=== PATIENT | male | born 1965 | race Caucasian/White ===

== ENCOUNTER 2016-03-11 03:28 | Inpatient (IN) | payer BC ==
[~2016-03-11] VITALS: Ht 177.8 cm; Wt 89.9 kg
[2016-03-11] MEDS ORDERED: DILAUDID 1 MG/ML AMP ONE ×2 (04:01→06:23)
[2016-03-11] MEDS ORDERED: ONDANSETRON 4 MG VIAL ONE (04:01)
[2016-03-11] MEDS ORDERED: SODIUM CHLORIDE 0.9% 1,000 ML ONE (05:53)
[2016-03-11] MEDS ORDERED: PIPER/TAZO 3.375 GM PYXIS ONE (06:23)
[2016-03-11] MEDS ORDERED: SODIUM CHLORIDE 0.9% 100 ML IV ONE (06:23)
[2016-03-11] MEDS ORDERED: VANCOMYCIN 2,000 MG in SODIUM CHLORIDE 0.9% 500 ML IV ONE (06:35)
[2016-03-11] MEDS ORDERED: BISACODYL EC 5 MG TAB PO PRN (08:15)
[2016-03-11] MEDS ORDERED: SALINE FLUSH 10 ML FLUSH PRN (08:15)
[2016-03-11] MEDS ORDERED: BISACODYL 10 MG SUPP RECTAL PRN (08:15)
[2016-03-11] MEDS ORDERED: DEXTROSE 50% SYRINGE 50 ML IV PRN (08:15)
[2016-03-11] MEDS ORDERED: ONDANSETRON 4 MG VIAL IV PRN (08:15)
[2016-03-11] MEDS ORDERED: PHARMACY TO DOSE IV SCH (08:15)
[2016-03-11] MEDS ORDERED: GLUCAGON 1 MG VIAL IM PRN (08:15)
[2016-03-11] MEDS ORDERED: ALU/MAG/SIM 30 ML UDC PO PRN (08:15)
[2016-03-11] MEDS ORDERED: ACETAMINOPHEN 325 MG TAB PO PRN (08:15)
[2016-03-11] MEDS ORDERED: TEMAZEPAM 7.5 MG CAP PO PRN (08:15)
[2016-03-11] MEDS ORDERED: MAG HYDROX 30 ML UDC PO PRN (08:15)
[2016-03-11] MEDS: PIPERACIL/TAZO 3.375GM/50ML 50 ML IV SCH ×4 (08:31→23:42)
[2016-03-11 08:35] VITALS: BP_SYST 120; BP_SYST 130; RESP 20; TEMP 98.3
[2016-03-11 08:38] VITALS: Ht 177.8 cm; Wt 89.9 kg
[2016-03-11] MEDS ORDERED: **NOTE TO NURSE**PLEASE ENTER HT AND WT FOR VANCOMYCIN DOSING XX SCH (08:39)
[2016-03-11] MEDS ORDERED: VANCOMYCIN 1,750 MG in SODIUM CHLORIDE 0.9% 500 ML IV STA (08:51)
[2016-03-11] MEDS ORDERED: OPTIRAY 350 100 ML VIAL HMH IV ONE (08:55)
[2016-03-11] MEDS: ENOXAPARIN 40 MG/0.4 ML SYR SUBQ SCH (09:00)
[2016-03-11 11:08] VITALS: BP_SYST 118; RESP 18; TEMP 99
[2016-03-11] MEDS: EZETIMIBE 10 MG TAB PO SCH (11:59)
[2016-03-11 12:56] VITALS: RESP 20
[2016-03-11 15:40] VITALS: BP_SYST 115; RESP 18; TEMP 97.7
[2016-03-11] MEDS: DAKIN'S 0.125% 480 ML TOPICAL SCH ×2 (16:14→19:17)
[2016-03-11] MEDS: VANCOMYCIN 1,250 MG in SODIUM CHLORIDE 0.9% 250 ML IV SCH (18:25)
[2016-03-11] MEDS: CETIRIZINE 10 MG TAB PO SCH (19:47)
[2016-03-11 20:00] VITALS: BP_SYST 112; RESP 16; TEMP 98.6
[2016-03-11] MEDS: SALINE FLUSH 10 ML FLUSH SCH (20:00)
[2016-03-11] MEDS: SODIUM CHLOR 0.9% W/KCL 20MEQ 1,000 ML IV SCH (21:41)
[2016-03-11 23:34] VITALS: BP_SYST 113; RESP 16; TEMP 99.5
[2016-03-12] MEDS: VANCOMYCIN 1,250 MG in SODIUM CHLORIDE 0.9% 250 ML IV SCH ×3 (02:04→18:25)
[2016-03-12 03:44] VITALS: BP_SYST 113; RESP 16; TEMP 99.9
[2016-03-12] MEDS: PIPERACIL/TAZO 3.375GM/50ML 50 ML IV SCH ×3 (05:53→17:10)
[2016-03-12] MEDS ORDERED: SODIUM CHLORIDE 0.9% FLUSH BAG 500 ML IV SCH (06:00)
[2016-03-12 07:57] VITALS: BP_SYST 121; RESP 16; TEMP 100.2
[2016-03-12] MEDS: SALINE FLUSH 10 ML FLUSH SCH ×2 (08:02→20:29)
[2016-03-12] MEDS: EZETIMIBE 10 MG TAB PO SCH (08:02)
[2016-03-12] MEDS: ENOXAPARIN 40 MG/0.4 ML SYR SUBQ SCH (08:03)
[2016-03-12] MEDS: DAKIN'S 0.125% 480 ML TOPICAL SCH (08:03)
[2016-03-12 11:35] VITALS: BP_SYST 127; RESP 16; TEMP 98.5
[2016-03-12 15:34] VITALS: BP_SYST 141; RESP 16; TEMP 102.8
[2016-03-12] MEDS: SODIUM CHLOR 0.9% W/KCL 20MEQ 1,000 ML IV SCH (16:01)
[2016-03-12 19:47] VITALS: BP_SYST 123; RESP 20; TEMP 100.1
[2016-03-12] MEDS ORDERED: PANTOPRAZOLE 40 MG VIAL IV SCH (20:00)
[2016-03-12] MEDS: CETIRIZINE 10 MG TAB PO SCH (20:29)
[2016-03-12 23:52] VITALS: BP_SYST 117; RESP 18; TEMP 99.5
[2016-03-13] MEDS: SODIUM CHLOR 0.9% W/KCL 20MEQ 1,000 ML IV SCH (00:40)
[2016-03-13] MEDS: PIPERACIL/TAZO 3.375GM/50ML 50 ML IV SCH (00:40)
[2016-03-13] MEDS ORDERED: VANCOMYCIN 1,500 MG in SODIUM CHLORIDE 0.9% 250 ML IV SCH (02:00)
[2016-03-13 04:03] VITALS: BP_SYST 124; RESP 18; TEMP 99.2
== END 2016-03-13 04:48 | disposition short-term general hospital (02) | DRG 862 ==
LOC: ENRESERVTM → ENRESERVDT → ER 03:28 → EMR 06:32 → ENPENDDIS 06:32 → 4THE 08:25
PROVIDERS: ADMIT Family Medicine; ATTEND Family Medicine
CPT/HCPCS: 70450; 71260; 72072; 72100; 72125; 80053; 80202; 82947; 85025; 87077; 87186; 93005; 94799; 96361; 96365; 96367; 96375; 96376